=== PATIENT | female | born 1970 | race Caucasian/White ===

== ENCOUNTER 2017-02-20 12:26 | Emergency (ER) | payer MEDICAID, OTHER ==
[2017-02-20 12:30] VITALS: O2SAT 98
[2017-02-20] MEDS ORDERED: DiphenhydrAMINE 50 mg/ml Inj IVP STA (12:42)
[2017-02-20 13:08] LABS: BASO % 0.5 % (0.0-2.0); EOS # 0.2 K/uL (0.0-0.7); HEMATOCRIT 42.9 % (34.0-47.0); LYMPH # 3.9 K/uL (1.0-4.3); LYMPH % 44.6 % (20.0-40.0); MEAN CELL VOLUME 86.9 fL (81.0-99.0); MEAN CORPUSCULAR HEMOGLOBIN 29.1 pg (27.0-31.0); MEAN CORPUSCULAR HGB CONC 33.5 g/dL (33.0-37.0); MEAN PLATELET VOLUME 8.6 fL (7.2-11.7); MONO # 0.8 K/uL (0.0-0.8); MONO % 8.9 % (0.0-10.0); NRBC % 0.1 % (0.0-2.0); WHITE BLOOD COUNT 8.7 K/uL (4.8-10.8)
[2017-02-20 13:17] LABS: CHLORIDE 101 mmol/L (98-107)
[2017-02-20 13:18] LABS: POTASSIUM 3.3 mmol/L (3.6-5.2); SODIUM 140 mmol/L (132-148)
[2017-02-20 13:20] LABS: ALB/GLOB RATIO 1.2 (1.0-2.1); ALKALINE PHOSPHATASE 86 U/L (38-126); ALT/SGPT 33 U/L (9-52); AST/SGOT 22 U/L (14-36); BILIRUBIN,TOTAL 0.5 mg/dL (0.2-1.3); BLOOD UREA NITROGEN 7 mg/dL (7-17); CARBON DIOXIDE 23 mmol/L (22-30); GFR AFRICAN-AMERICAN > 60; TOTAL PROTEIN 7.1 g/dL (6.3-8.3)
[2017-02-20 13:21] LABS: CALCIUM 8.5 mg/dl (8.6-10.4); GLUCOSE,RANDOM 89 mg/dL (65-105)
--- NOTE | 2017-02-20 13:43 | RAD ---
PROCEDURE: Left Knee Radiographs. HISTORY: Pain. COMPARISON: None. FINDINGS: BONES: Normal alignment is normal. No acute fracture. JOINTS: No significant degenerative osteoarthrosis. JOINT EFFUSION: There is a small suprapatellar joint effusion. OTHER FINDINGS: None. IMPRESSION: No acute fracture or dislocation. Small suprapatellar joint effusion.
[2017-02-20] MEDS ORDERED: DiphenhydrAMINE 50 mg/ml Inj ONE (14:02)
[2017-02-20 14:24] LABS: URINE BILIRUBIN NEGATIVE (NEGATIVE); URINE BLOOD 1+ (NEGATIVE); URINE COLOR Yellow (YELLOW); URINE GLUCOSE (UA) NORMAL (Normal); URINE KETONE NEGATIVE (NEGATIVE); URINE LEUKOCYTE ESTERASE NEG Leu/uL (Negative); URINE PROTEIN NEGATIVE (NEGATIVE); URINE UROBILINOGEN NORMAL mg/dL (0.2-1.0); WBC URINE < 1 /hpf (0-5)
[2017-02-20 14:27] LABS: RBC URINE 5 /hpf (0-3)
--- NOTE | 2017-02-20 15:01 | C.PDOC ---
History Of Present Illness Patient presents to ED c/o sudden onset of diffuse headache, light sensitivity x approx 1 hour. Patient also states that sometimes when she walks, she feels like her left knee is weak and gives out. Patient also c/o occasional numbness/ tingling sensation on skin of her left abdomen. She denies fever, neck pain/ stiffness, chest pain, palpitations, visual changes, extremity weakness, sensory changes in extremities, facial droop, slurred speech, nausea/vomiting/ diarrhea. Time Seen by Provider: 02/20/17 12:36 Chief Complaint (Nursing): Headache History Per: Patient History/Exam Limitations: no limitations Onset/Duration Of Symptoms: Sudden Onset Current Symptoms Are (Timing): Still Present Severity: Mild Quality: "Pain" Preceeding Symptoms: Visual Disturbances. denies: Known Migraine Symptoms Associated Symptoms: Photophobia. denies: Blurred Vision, Nausea, Vomiting, Extremity Weakness Past Medical History Reviewed: Historical Data, Nursing Documentation, Vital Signs Vital Signs: Last Vital Signs Temp 97.8 F 02/20/17 16:12 Pulse 80 02/20/17 16:12 Resp 16 02/20/17 16:12 BP 110/65 02/20/17 16:12 Pulse Ox 98 02/20/17 16:12 - Medical History PMH: No Chronic Diseases Family History: States: No Known Family Hx - Social History Hx Tobacco Use: No Hx Alcohol Use: No Hx Substance Use: No - Immunization History Hx Tetanus Toxoid Vaccination: No Hx Influenza Vaccination: No Hx Pneumococcal Vaccination: No Review Of Systems Except As Marked, All Systems Reviewed And Found Negative. Constitutional: Negative for: Fever, Chills Cardiovascular: Negative for: Chest Pain, Palpitations Respiratory: Negative for: Cough, Shortness of Breath Gastrointestinal: Negative for: Nausea, Vomiting, Abdominal Pain, Diarrhea Genitourinary: Negative for: Dysuria, Hematuria Skin: Negative for: Rash Neurological: Positive for: Headache. Negative for: Weakness, Numbness, Confusion, Seizures, Dizziness Physical Exam - Physical Exam Appears: Well, Non-toxic, No Acute Distress, Other (anxious appearing ) Skin: Normal Color, Warm, Dry, No Rash Head: Atraumatic, Normacephalic Eye(s): bilateral: Normal Inspection, PERRL, EOMI Oral Mucosa: Moist Chest: Symmetrical Cardiovascular: Rhythm Regular Respiratory: Normal Breath Sounds, No Rales, No Rhonchi, No Wheezing Gastrointestinal/Abdominal: Normal Exam, Bowel Sounds, Soft, No Tenderness, No Distention, No Guarding, No Rebound Extremity: Bilateral: Atraumatic, Normal Color And Temperature, Normal ROM Pulses: Left Dorsalis Pedis: Normal, Right Dorsalis Pedis: Normal Neurological/Psych: Oriented x3, Normal Speech, Normal Cognition, Normal Cranial Nerves, No Cerebellar Signs, Normal Motor, Normal Sensation, Normal Reflexes, No Dysarthria, No Romberg ED Course And Treatment - Laboratory Results Result Diagrams: 02/20/17 13:02 02/20/17 13:02 O2 Sat by Pulse Oximetry: 98 (RA) Pulse Ox Interpretation: Normal - Other Rad LEFT KNEE XRAY X-Ray: Viewed By Me, Read By Radiologist Interpretation: Accession No. : [id number]. Patient Name / ID : MARTHA RASMUSSEN / [id number]. Exam Date : 02/20/2017 13:02:47 ( Approved ). Study Comment : Sex / Age : F / 46Y. Creator : KALI WASSERMAN MD. Dictator : KALI WASSERMAN MD. Chiseler Head : Gin Pole Operator : KALI WASSERMAN MD. Approver2 : Report Date : 02/20/2017 13:41:42. My Comment : . PROCEDURE: Left Knee Radiographs. HISTORY: Pain. COMPARISON: None. FINDINGS: BONES: Normal alignment is normal. No acute fracture. JOINTS: No significant degenerative osteoarthrosis. JOINT EFFUSION: There is a small suprapatellar joint effusion. OTHER FINDINGS: None. IMPRESSION: No acute fracture or dislocation. Small suprapatellar joint effusion. - CT Scan/US CT HEAD Other Rad Studies (CT/US): Read By Radiologist, Radiology Report Reviewed CT/US Interpretation: Accession No. : [id number]. Patient Name / ID : MARTHA RASMUSSEN / [id number]. Exam Date : 02/20/2017 14:42:10 ( Approved ). Study Comment : Sex / Age : F / 46Y. Creator : KALI WASSERMAN MD. Dictator : KALI WASSERMAN MD. Chiseler Head : Gin Pole Operator : KALI WASSERMAN MD. Approver2 : Report Date : 02/20/2017 15:02:41. My Comment : . PROCEDURE: CT HEAD WITHOUT CONTRAST. HISTORY: headache, dizziness. COMPARISON: None available. TECHNIQUE: Axial computed tomography images were obtained through the head/ brain without intravenous contrast. Radiation dose: Total exam DLP = 883.66 mGy-cm. This CT exam was performed using one or more of the following dose reduction techniques: Automated exposure control, adjustment of the mA and/or kV according to patient size, and/or use of iterative reconstruction technique. FINDINGS: HEMORRHAGE: No intracranial hemorrhage. BRAIN: Buenrostro-white matter differentiation is preserved. There is no mass, mass effect or abnormal extra-axial fluid collection. There is no territorial infarction. VENTRICLES: The ventricles are normal in size, shape and configuration. CALVARIUM: The skull base and calvarium are normal. PARANASAL SINUSES: There is mild mucosal thickening in the sphenoid sinus with aerosolized secretions. The remaining included paranasal sinuses are clear. MASTOID AIR CELLS: Predominantly clear. OTHER FINDINGS: None. IMPRESSION: No acute intracranial abnormality. Acute and/or sphenoid sinusitis. Clinical correlation and follow-up is advised. Progress Note: Blood work, UA, Upreg, knee Xray ordered and reviewed. Patient denies prior headache/migraine history, CT head ordered. Patient given IV reglan, benadryl, IV toradol & IV NS bolus. CT head (+) for acute sinusitis - PO Augmentin given. Reevaluation Time: 15:50 Reassessment Condition: Improved (On reassessment, patient is resting comfortably, in no current pain/distress. Headache has resolved, patient is well appearing and comfortable being discharged home. Rxs for Augmentin, Fiorecet and Probiotic given, and patient instructed to follow up with PMD/ clinic in 1-2 days. She understands she should return to ED if symptoms worsen. ) Disposition Counseled Patient/Family Regarding: Studies Performed, Diagnosis, Need For Followup, Rx Given - Disposition Referrals: Alberto Dias MD [Staff Provider] - Disposition: HOME/ ROUTINE Disposition Time: 15:50 Condition: STABLE Prescriptions: Acetaminophen/Butalbital/Caf [Fioricet] 1 tab PO TID PRN #20 tab PRN Reason: Headache Amoxicillin/Clavulanate [Augmentin 875 MG-125 MG] 1 tab PO BID #20 tab Lactobacillus Combination No.4 [Probiotic] 1 each PO DAILY #10 capsule Instructions: Sinusitis (ED), Acute Headache (ED) Forms: [facility] (Maltese) Print Language: GERMAN - POA Present On Arrival: None - Clinical Impression Clinical Impression: Sinusitis, Headache
--- NOTE | 2017-02-20 15:04 | CT ---
PROCEDURE: CT HEAD WITHOUT CONTRAST. HISTORY: headache, dizziness COMPARISON: None available. TECHNIQUE: Axial computed tomography images were obtained through the head/brain without intravenous contrast. Radiation dose: Total exam DLP = 883.66 mGy-cm. This CT exam was performed using one or more of the following dose reduction techniques: Automated exposure control, adjustment of the mA and/or kV according to patient size, and/or use of iterative reconstruction technique. FINDINGS: HEMORRHAGE: No intracranial hemorrhage. BRAIN: Buenrostro-white matter differentiation is preserved. There is no mass, mass effect or abnormal extra-axial fluid collection. There is no territorial infarction. VENTRICLES: The ventricles are normal in size, shape and configuration. CALVARIUM: The skull base and calvarium are normal. PARANASAL SINUSES: There is mild mucosal thickening in the sphenoid sinus with aerosolized secretions. The remaining included paranasal sinuses are clear. MASTOID AIR CELLS: Predominantly clear. OTHER FINDINGS: None. IMPRESSION: No acute intracranial abnormality. Acute and/or sphenoid sinusitis. Clinical correlation and follow-up is advised.
[2017-02-20] MEDS ORDERED: Amoxicillin-Clav 875-125 mg Tab PO STA (15:20)
[2017-02-20] MEDS ORDERED: Amoxicillin-Clav 875-125 mg Tab PO ONE (15:41)
[2017-02-20 16:12] VITALS: BP 110/65; PULSE 80; RESP 16; TEMP 97.8
== END 2017-02-20 16:16 | disposition home or self-care (01) ==
LOC: C.ER 12:26
DX: R51 Headache (principal); J32.9 Chronic sinusitis, unspecified
CPT/HCPCS: 70450; 73562; 80053; 81001; 83690; 84703; 85025; 96374; 96375; 99285; J1200; J1885; J2765

== ENCOUNTER 2018-09-28 12:15 | Emergency (ER) | payer OTHER ==
[2018-09-28 12:36] VITALS: RESP 18
[2018-09-28] MEDS ORDERED: Sodium Chloride 0.9% 1,000 ML IV ONE (13:20)
[2018-09-28 13:52] LABS: BASO # 0.1 K/uL (0.0-0.2); BASO % 0.6 % (0.0-2.0); EOS # 0.1 K/uL (0.0-0.7); EOS % 0.8 % (0.0-4.0); HEMOGLOBIN 15.3 g/dL (11.0-16.0); LYMPH # 3.3 K/uL (1.0-4.3); LYMPH % 35.3 % (20.0-40.0); MEAN CORPUSCULAR HEMOGLOBIN 30.3 pg (27.0-31.0); MEAN CORPUSCULAR HGB CONC 33.7 g/dL (33.0-37.0); MEAN PLATELET VOLUME 8.8 fL (7.2-11.7); MONO # 0.5 K/uL (0.0-0.8); MONO % 5.6 % (0.0-10.0); NEUT # 5.4 K/uL (1.8-7.0); NEUT % 57.7 % (50.0-75.0); NRBC % 0.1 % (0.0-2.0); RBC 5.04 Mil/uL (3.80-5.20); RED CELL DISTRIBUTION WIDTH 13.3 % (11.5-14.5); WHITE BLOOD COUNT 9.4 K/uL (4.8-10.8)
[2018-09-28 13:54] LABS: MEAN CELL VOLUME 89.8 fL (81.0-99.0)
[2018-09-28 13:56] LABS: SQUAMOUS EPITHIAL 2 /hpf (0-5); URINE BILIRUBIN NEGATIVE (NEGATIVE); URINE BLOOD 3+ (NEGATIVE); URINE CLARITY Hazy (Clear); URINE COLOR Yellow (YELLOW); URINE GLUCOSE (UA) NORMAL (Normal); URINE LEUKOCYTE ESTERASE NEG Leu/uL (Negative); URINE PROTEIN 1+ mg/dL (NEGATIVE); URINE UROBILINOGEN NORMAL mg/dL (0.2-1.0)
--- NOTE | 2018-09-28 13:58 | C.PDOC ---
History Of Present Illness 47 y/o female presents to the ED with 4 days of abdominal pain. Pain is localized to the suprapubic region, described as crampy in nature. States she also had some diarrhea and nausea, with 1 episode of vomiting. Otherwise she denies any fevers, chills, urinary symptoms, vaginal discharge or bleeding. Time Seen by Provider: 09/28/18 13:13 Chief Complaint (Nursing): Abdominal Pain History Per: Patient History/Exam Limitations: no limitations Onset/Duration Of Symptoms: Days (x 4) Current Symptoms Are (Timing): Still Present Location Of Pain/Discomfort: Suprapubic Quality Of Discomfort: Cramping Associated Symptoms: Nausea, Vomiting, Diarrhea Past Medical History Reviewed: Historical Data, Nursing Documentation, Vital Signs Vital Signs: Last Vital Signs Temp 97.8 F 09/28/18 12:30 Pulse 84 09/28/18 12:30 Resp 18 09/28/18 12:30 BP 131/78 09/28/18 12:30 Pulse Ox 98 09/28/18 12:30 Surgical History: No Surg Hx Family History: States: Unknown Family Hx - Social History Hx Tobacco Use: No Hx Alcohol Use: No Hx Substance Use: No - Immunization History Hx Tetanus Toxoid Vaccination: No Hx Influenza Vaccination: No Hx Pneumococcal Vaccination: No Review Of Systems Except As Marked, All Systems Reviewed And Found Negative. Constitutional: Negative for: Fever, Chills Respiratory: Negative for: Shortness of Breath Gastrointestinal: Positive for: Nausea, Vomiting (x 1), Abdominal Pain, Diarrhea. Negative for: Hematochezia, Hematemesis Genitourinary: Negative for: Dysuria, Frequency, Incontinence, Vaginal Discharge, Vaginal Bleeding Musculoskeletal: Negative for: Back Pain Neurological: Negative for: Weakness, Dizziness Physical Exam - Physical Exam Appears: Non-toxic, No Acute Distress Skin: Warm, Dry, No Rash Head: Atraumatic, Normacephalic Eye(s): bilateral: Normal Inspection, PERRL, EOMI Oral Mucosa: Moist Neck: Normal ROM Chest: Symmetrical Cardiovascular: Rhythm Regular, No Murmur Respiratory: Normal Breath Sounds, No Accessory Muscle Use Gastrointestinal/Abdominal: Soft, Tenderness (suprapubic), No Guarding, No Rebound Back: No CVA Tenderness, No Vertebral Tenderness Extremity: Bilateral: Atraumatic, Normal Color And Temperature, Normal ROM Neurological/Psych: Oriented x3, Normal Speech ED Course And Treatment - Laboratory Results Result Diagrams: 09/28/18 13:49 09/28/18 13:49 O2 Sat by Pulse Oximetry: 98 (RA) Pulse Ox Interpretation: Normal - Other Rad Obstructive Series X-Ray: Read By Radiologist Interpretation: Accession No. : [id number]. Patient Name / ID : MARTHA LIMA / [id number]. Exam Date : 09/28/2018 13:23:49 ( Approved ). Study Comment : Sex / Age : F / 47Y. Creator : miladys helms. Dictator : Randy Contreras MD. Rn Maternal Child : Casework Manager : Randy Contreras MD. Approver2 : Report Date : 09/28/2018 13:47:53. My Comment : . Date of service: 09/28/2018. PROCEDURE: Radiographs of the chest and abdomen (obstructive series). HISTORY: abd pain. COMPARISON: No prior. TECHNIQUE: AP radiograph of the chest, with upright and supine radiographs of the abdomen. FINDINGS: CHEST: Lungs: Clear. Cardiovascular: Normal size heart. No pulmonary vascular congestion. No aortic atherosclerotic calcification present. Pleura: No pleural fluid. No pneumothorax. Other findings: None. ABDOMEN AND PELVIS: Bowel: Unremarkable bowel gas pattern. No evidence of mechanical obstruction. Free air: None. Bones: Unremarkable. Other findings: Multiple small rounded calcifications overlying the inferior true pelvis left greater than right felt to represent small calcified pelvic phleboliths. IMPRESSION: Unremarkable radiographs of chest and abdomen. No evidence of mechanical bowel obstruction. Medical Decision Making Medical Decision Making: Impression: Abdominal Pain Plan: - Blood work - UA, Urine culture - Obstructive series x-ray - NS IV fluids - 20 mg IV Pepcid - 30 mg IV Toradol - 4 mg IV Zofran - Reassess Progress: Labs reviewed, UA shows +blood. X-ray shows no signs of obstruction. 1520 - reevaluated patient. No further pain at this time. Patient is currently with her menses and abd. pain is suprapubic region. Will discharge home to follow up with pmd within 2 days Disposition Counseled Patient/Family Regarding: Studies Performed, Diagnosis, Need For Followup - Disposition Referrals: [facility] [Outside] Disposition: HOME/ ROUTINE Disposition Time: 15:21 Condition: IMPROVED Additional Instructions: follow up with your doctor tomorrow call to make an appointment take medication as prescribed return to ER if symptoms worsens or progress Prescriptions: Naproxen [Naprosyn] 500 mg PO BID PRN #16 tab PRN Reason: Pain, Moderate (4-7) Instructions: Stomach Ache and Stomach Upset, Menstruation Forms: [facility] (Cape Verdean), General Discharge Instructions, Work Excuse - Clinical Impression Clinical Impression: Abdominal pain, Menses painful - Scribe Statement The provider has reviewed the documentation as recorded by the Amy Ernst Provider Attestation: All medical record entries made by the Amy were at my direction and personally dictated by me. I have reviewed the chart and agree that the record accurately reflects my personal performance of the history, physical exam, medical decision making, and the department course for this patient. I have also personally directed, reviewed, and agree with the discharge instructions and disposition.
--- NOTE | 2018-09-28 14:04 | RAD ---
Date of service: 09/28/2018 PROCEDURE: Radiographs of the chest and abdomen (obstructive series) HISTORY: abd pain COMPARISON: No prior. TECHNIQUE: AP radiograph of the chest, with upright and supine radiographs of the abdomen. FINDINGS: CHEST: Lungs: Clear. Cardiovascular: Normal size heart. No pulmonary vascular congestion. No aortic atherosclerotic calcification present Pleura: No pleural fluid. No pneumothorax. Other findings: None. ABDOMEN AND PELVIS: Bowel: Unremarkable bowel gas pattern. No evidence of mechanical obstruction. Free air: None. Bones: Unremarkable. Other findings: Multiple small rounded calcifications overlying the inferior true pelvis left greater than right felt to represent small calcified pelvic phleboliths. IMPRESSION: Unremarkable radiographs of chest and abdomen. No evidence of mechanical bowel obstruction.
[2018-09-28 14:05] LABS: ALB/GLOB RATIO 1.5 (1.0-2.1); ALBUMIN 4.6 g/dL (3.5-5.0); ALT/SGPT 35 U/L (9-52); AST/SGOT 35 U/L (14-36); BLOOD UREA NITROGEN 6 mg/dL (7-17); CALCIUM 8.3 mg/dl (8.6-10.4); GFR NON-AFRICAN AMERICAN > 60; LIPASE 45 U/L (23-300)
[2018-09-28] MEDS ORDERED: Sodium Chloride 0.9% 1,000 ML ONE (14:23)
[2018-09-28 15:30] VITALS: BP 118/69; PULSE 62; TEMP 98.5; O2SAT 100
== END 2018-09-28 15:31 | disposition home or self-care (01) ==
LOC: C.ER 12:15
DX: N94.6 Dysmenorrhea, unspecified (principal); R10.30 Lower abdominal pain, unspecified
CPT/HCPCS: 74022; 80053; 81001; 81025; 83690; 85025; 87086; 96361; 96374; 96375; 99284; J1885; J2405; J7030